=== PATIENT | female | born 1930 | race Caucasian/White ===

== ENCOUNTER 2020-05-31 14:49 | Inpatient (IN) | payer MEDICARE, OTHER ==
[~2020-05-31 14:49] MED LIST: ANTIVERT12.5 MG PO; ASPIRIN CHEWABL81 MG PO; LEVOTHYROXINE25 MCG PO; LISINOPRIL 2.52.5 MG PO; LOPRESSOR25 MG PO; METFORMIN HCL500 M3 PO
[2020-05-31 17:04] LABS: BILIRUBIN NEGATIVE (NEGATIVE); BLOOD NEGATIVE Ery/uL (NEGATIVE); CLARITY CLEAR (CLEAR); COLOR YELLOW (YELLOW); GLUCOSE (U) NORMAL (NORMAL); LEUKOCYTES NEGATIVE Leu/uL (NEGATIVE); NITRITE NEGATIVE (NEGATIVE); PROTEIN NEGATIVE (NEGATIVE); UROBILINOGEN 0.2 mg/dL (0.2-1.0)
[2020-05-31 17:07] LABS: INR 1.12 (0.9-1.2); PROTHROMBIN TIME 13.7 SECONDS (11.4-13.6); PTT 29.2 SECONDS (22.2-34.7)
[2020-05-31 17:11] LABS: BASOPHIL 0.2 % (0-2); EOSINOPHIL 0.2 % (0-7); HCT 24.9 % (37.0-47.0); LYMPHOCYTE 8.4 % (15-48); MCH 16.2 pg (25.0-31.0); MCHC 25.3 g/dL (32.0-36.0); MCV 63.8 fL (78.0-100.0); MONOCYTE 4.6 % (0-12); MPV 9.7 fL (6.0-9.5); NEUTROPHIL 86.1 % (41-80); NRBC 0; PLT 232 K/uL (150-400); RDW 23.6 % (11.5-14.0); WBC 5.8 K/uL (4.0-10.5)
[2020-05-31 17:12] LABS: HGB 6.3 g/dl (12.5-16.0)
[2020-05-31 17:23] LABS: ALBUMIN 3.6 g/dL (3.4-5.0); BILIRUBIN - TOTAL 0.8 mg/dL (0.2-1.0); BUN/CREAT RATIO (CALC) 16.1 RATIO; CREATININE 0.87 mg/dL (0.51-0.95); GLOBULIN (CALCULATION) 3.3 g/dL; TOTAL PROTEIN 6.9 g/dL (6.4-8.2)
[2020-05-31 18:10] LABS: IRON % SATURATION 2.4 %SAT (20-50)
[2020-05-31 19:16] LABS: FOLIC ACID (SERUM) 17.9 ng/mL (8.6-58.9)
[2020-05-31 19:40] LABS: MAGNESIUM 2.6 mg/dL (1.8-2.4); PHOSPHORUS 3.7 mg/dL (2.6-4.7)
[2020-05-31] MEDS ORDERED: ASPIRIN81 MG PO (21:52)
[2020-05-31] MEDS ORDERED: LEVOTHYROXINE25 MC1 PO (21:53)
[2020-05-31] MEDS ORDERED: ZESTRIL2.5 MG PO (21:54)
[2020-05-31] MEDS ORDERED: METFORMIN HCL500 MG PO (21:55)
[2020-05-31] MEDS ORDERED: LOPRESSOR25 MG PO (21:55)
--- NOTE | 2020-06-01 02:30 | NUR ---
2100 PT RECIEVED ADDMIT FROM THE ED. ORIENTED PT AND SON AMI TO ROOM AND CALL LIGHT.
--- NOTE | 2020-06-01 02:33 | NUR ---
0025 2ND UNIT PRBC STARTED PER ORDER. VITAL SIGNS IN GRAPHICS.
--- NOTE | 2020-06-01 03:09 | NUR ---
0300 2ND UNIT PRBC COMPLETED. NO TRANSFUSION RXN NOTED. 350 ML PRBC INFUSED.
[2020-06-01 07:11] LABS: BASOPHIL 0.4 % (0-2); HCT 27.6 % (37.0-47.0); HGB 7.7 g/dl (12.5-16.0); LYMPHOCYTE 17.9 % (15-48); MCH 19.1 pg (25.0-31.0); MCHC 27.9 g/dL (32.0-36.0); MCV 68.5 fL (78.0-100.0); MONOCYTE 9.1 % (0-12); MPV 9.1 fL (6.0-9.5); NEUTROPHIL 71.2 % (41-80); NRBC 0; PLT 174 K/uL (150-400); RBC 4.03 M/uL (4.20-5.40); RDW 26.3 % (11.5-14.0); WBC 4.9 K/uL (4.0-10.5)
[2020-06-01 07:49] LABS: ALBUMIN 2.9 g/dL (3.4-5.0); BUN/CREAT RATIO (CALC) 16.2 RATIO; CREATININE 0.74 mg/dL (0.51-0.95); GLOBULIN (CALCULATION) 2.8 g/dL; POTASSIUM 4.1 mmol/L (3.5-5.1); TOTAL PROTEIN 5.7 g/dL (6.4-8.2)
--- NOTE | 2020-06-01 16:05 | NUR ---
MET [facility] PT. SON, MÓNICA [phone]. HE ADVISED THAT HE AND HIS BROTHER, LEONA ARE BOTH POA. HE WOULD LIKE A REFERRAL TO [facility] MADE FOR GROUP HOME. 1.DUSTY, 2. YO, 3. RACHEL, 4. MARK. TC TO JAYLAN AT [facility]. SENT REFERRAL TO [facility]. DR. NGUYEN IS AWARE.
--- NOTE | 2020-06-01 17:47 | NUR ---
I have reviewed the assessment documented by the Student Nurse and agree with the findings.
--- NOTE | 2020-06-01 22:53 | NUR ---
2110 FIRST UNIT PRBC COMPLETED WITHOUT SIGNS OF TRANSFUSION RXN.
[2020-06-02 06:04] LABS: BASOPHIL 0.4 % (0-2); EOSINOPHIL 0.6 % (0-7); HCT 39.8 % (37.0-47.0); LYMPHOCYTE 10.5 % (15-48); MCH 21.9 pg (25.0-31.0); MCHC 29.9 g/dL (32.0-36.0); MCV 73.2 fL (78.0-100.0); MONOCYTE 6.2 % (0-12); MPV 9.6 fL (6.0-9.5); NEUTROPHIL 81.5 % (41-80); NRBC 0; PLT 188 K/uL (150-400); RBC 5.44 M/uL (4.20-5.40); WBC 8.5 K/uL (4.0-10.5)
[2020-06-02 06:32] LABS: ALBUMIN 3.1 g/dL (3.4-5.0); BILIRUBIN - TOTAL 1.2 mg/dL (0.2-1.0); BUN/CREAT RATIO (CALC) 14.5 RATIO; CREATININE 0.76 mg/dL (0.51-0.95); MAGNESIUM 2.4 mg/dL (1.8-2.4); POTASSIUM 3.8 mmol/L (3.5-5.1); TOTAL PROTEIN 6.1 g/dL (6.4-8.2)
[2020-06-02 06:50] LABS: HGB 11.9 g/dl (12.5-16.0)
[2020-06-02 06:55] LABS: TOTAL CELL COUNT 100
[2020-06-02 07:00] LABS: ANISOCYTOSIS MODERATE; EOSINOPHIL(M) 1 % (0-7); LYMPHOCYTE(M) 13 % (15-48); MONOCYTE(M) 6 % (0-12); NEUTROPHILS(M) 80 % (41-80); PLATELET ESTIMATE NORMAL; PLATELET MORPHOLOGY NORMAL; POIKILOCYTOSIS MODERATE; PRO-BNP 1794 pg/mL (<450)
--- NOTE | 2020-06-02 18:09 | NUR ---
1800 CLIENT SUPPORT COORDINATOR REPORTS THAT THE PATIENT HAS A LOW URINE OUTPUT, BLADDER SCANNED AFTER VOIDING ONLY A SMALL AMOUNT. BLADDER SCAN 0ML. DR NGUYEN NOTIFED AND WILL START IV FLUIDS. WILL CONTINUE TO MONITOR FOR CHANGES
[2020-06-03 04:20] LABS: BASOPHIL 0.3 % (0-2); EOSINOPHIL 1.2 % (0-7); HCT 36.5 % (37.0-47.0); HGB 10.8 g/dl (12.5-16.0); LYMPHOCYTE 14.7 % (15-48); MCH 21.7 pg (25.0-31.0); MCHC 29.6 g/dL (32.0-36.0); MCV 73.3 fL (78.0-100.0); MONOCYTE 9.8 % (0-12); MPV 8.8 fL (6.0-9.5); NEUTROPHIL 73.5 % (41-80); NRBC 0; PLT 152 K/uL (150-400); RBC 4.98 M/uL (4.20-5.40); WBC 6.5 K/uL (4.0-10.5)
[2020-06-03 04:39] LABS: BUN/CREAT RATIO (CALC) 18.2 RATIO; CREATININE 0.77 mg/dL (0.51-0.95); POTASSIUM 3.9 mmol/L (3.5-5.1)
--- NOTE | 2020-06-04 09:31 | NUR ---
RECEVIED CALL FROM JAYLAN WITH SIGNATURE. PT. HAS BEEN ACCEPTED AT [facility] IN [facility]. ADVISED DR. NGUYEN AND RADHA PATEL. REPORT NUMBER IS [phone] FAX NUMBER IS [phone] JAYLAN SPOKE WITH SON AND THEY ARE IN AGREEMENT.
[2020-06-04] MEDS ORDERED: PRINIVIL20 MG PO (10:17)
== END 2020-06-04 17:40 | DRG 811 ==
LOC: FER 14:49 → FMS 19:06
PROVIDERS: Emergency Medicine; Nurse Practitioner; ADMIT Internal Medicine
PROC: 30233N1 Transfusion of Nonautologous Red Blood Cells into Peripheral Vein, Percutaneous Approach (ICD-10-PCS; principal; 2020-05-31)
PROC: 30233N1 Transfusion of Nonautologous Red Blood Cells into Peripheral Vein, Percutaneous Approach (ICD-10-PCS; 2020-06-01)
DX: D50.9 Iron deficiency anemia, unspecified (principal); G93.41 Metabolic encephalopathy; I10 Essential (primary) hypertension; Z20.822 Contact with and (suspected) exposure to COVID-19; E11.9 Type 2 diabetes mellitus without complications; I36.1 Nonrheumatic tricuspid (valve) insufficiency; I27.20 Pulmonary hypertension, unspecified; Z66 Do not resuscitate; F03.90 Unspecified dementia, unspecified severity, without behavioral disturbance, psychotic disturbance, mood disturbance, and anxiety; E03.9 Hypothyroidism, unspecified; Z90.710 Acquired absence of both cervix and uterus; Z98.890 Other specified postprocedural states; Z79.82 Long term (current) use of aspirin; Z79.84 Long term (current) use of oral hypoglycemic drugs; Z79.899 Other long term (current) drug therapy; Z88.0 Allergy status to penicillin; Z98.41 Cataract extraction status, right eye; Z98.42 Cataract extraction status, left eye
CPT/HCPCS: 36415; 36430; 70450; 70551; 71045; 80048; 80053; 81003; 82140; 82270; 82607; 82728; 82746; 83036; 83540; 83550; 83605; 83735; 83880; 84100; 84145; 84443; 84484; 85025; 85610; 85730; 86922; 94010; 94760; 97162; 97166; 97530-GP; 97535; C9113; G0378; J0360; J1650; J2916; J7040; J7050; P9016; Q9967; U0002